=== PATIENT | male | born 1965 | race Caucasian/White ===

== ENCOUNTER 2021-02-02 19:21 | Inpatient (IN) | payer OTHER, SELFPAY ==
--- NOTE | ~2021-02-02 | US_ITS ---
EXAMINATION: ULTRASOUND EXTREMITY NONVASCULAR CLINICAL INFORMATION: Right dorsum foot cellulitis, question abscess COMPARISON: None TECHNIQUE: Sonographic evaluation of the dorsal right foot was performed in the area of clinical concern with a linear transducer. FINDINGS: There is subcutaneous edema consistent with the history of cellulitis. No focal fluid collection is seen. US/US extremity nonvascular IMPRESSION: No abscess identified.
--- NOTE | ~2021-02-02 | US_ITS ---
EXAMINATION: US VENOUS ULTRASOUND WITH DOPPLER LOWER EXTREMITY, BILATERAL CLINICAL INFORMATION: Pain COMPARISON: None TECHNIQUE: Ultrasound of the deep veins is performed from the hip to the calf bilaterally with compression sonography and color and pulse Doppler assessment. Spectral analysis with color-flow imaging is performed. FINDINGS: RIGHT: There is normal venous compression and respiratory variation and augmented flow. The visualized common femoral vein, superficial femoral vein, profunda femoral vein, popliteal vein, and the trifurcation region shows no evidence of deep venous thrombosis. There is no significant popliteal fossa cyst. LEFT: There is normal venous compression and respiratory variation and augmented flow. The visualized common femoral vein, superficial femoral vein, profunda femoral vein, popliteal vein, and the trifurcation region shows no evidence of deep venous thrombosis. There is no significant popliteal fossa cyst. If the patient's symptoms persist, followup ultrasound in 5 days 7 days might be of value to exclude proximal propagation from a non-visualized calf vein. US/US venous duplex LE BI IMPRESSION: No DVT demonstrated in the bilateral lower extremities.
--- NOTE | ~2021-02-02 | XR_ITS ---
EXAMINATION: XR FOOT, RIGHT CLINICAL INFORMATION: Foot infection COMPARISON: None TECHNIQUE: AP, lateral, and oblique views of the right foot. FINDINGS: The bones and soft tissues are normal. No fracture. Alignment is anatomic. Joint spaces are maintained. XR/XR foot RT min 3V IMPRESSION: No acute osseous abnormality of the right foot.
[2021-02-02 19:47] VITALS: BP 121/73; PULSE 96; RESP 16; TEMP 37.1; O2SAT 98; BMI 32.3
[2021-02-02 20:00] VITALS: BP 114/65; PULSE 77; RESP 16; TEMP 36.9; O2SAT 97
--- NOTE | 2021-02-02 21:35 | ED_ITS ---
HPI - Skin/Abscess/Foreign Bdy General Chief complaint: Skin/Abscess/Foreign Body Stated complaint: foot swelling Time Seen by Provider: 02/02/21 21:25 History of Present Illness HPI narrative: Patient is a 55-year-old male with a history of pre diabetes, hypertension, high cholesterol, history of smoking. History of coronary artery disease. Status post stents to the heart. Status post VT in the past. Presents today with having right foot pain that is been ongoing for the last 2 d ays. With subjective fever at home. Patient complaining of worsening pain now migrating to the legs. No cough no congestion or upper respiratory symptoms. No diaphoresis. Patient is from home. No history of the same in the past. Positive allergies to morphine patient gets a rash. No chest pain or shortness of breath no diaphoresis. Patient came because there is increased swelling to the right foot. There is also increasing pain. Related Data Previous Rx's Medication Instructions Recorded atorvastatin 40 mg tablet 40 mg PO DAILY #90 tab 06/06/20 chlorthalidone 25 mg tablet 25 mg PO DAILY 90 Days #90 tab 08/09/20 aspirin 81 mg tablet,delayed 81 mg PO DAILY #90 tab 08/10/20 release duloxetine 60 mg capsule,delayed 60 mg PO BID #180 cap 10/17/20 release metoprolol succinate 50 mg 50 mg PO DAILY #90 tab 01/09/21 tablet,extended release 24 hr ibuprofen 600 mg tablet 600 mg PO Q8H #90 tab 01/16/21 Allergies Allergy/AdvReac Type Severity Reaction Status Date / Time morphine [MORPHINE] Allergy Unknown RASH Verified 02/02/21 19:46 Review of Systems Review of Systems: Constitutional: No Weight loss, No Fever, No Chills, No Night Sweats, No Fatigue, No Malaise ENT/Mouth: No Hearing loss, No Ear Pain, No Nasal Congestion, No Sinus Pain, No Hoarseness, No sore throat, No Rhinorrhea, No Swallowing Difficulty Eyes: No Eye Pain, No Swelling, No Redness, No Foreign Body, No Discharge, No Vision Changes Cardiovascular: No Chest Pain, No SOB, No Dyspnea on Exertion, No Orthopnea, No Edema, No Palpitations Respiratory: No Cough, No Sputum, No Wheezing, No Smoke Exposure, No Dyspnea Gastrointestinal: No Nausea, No Vomiting, No Diarrhea, No Constipation, No abdominal Pain, No Hematochezia, No Melena Genitourinary: no irregular bleeding, No Dysuria, No Urinary Frequency, No He maturia, No Urinary Incontinence, No Urgency, No Flank Pain, No Urinary Flow Changes, No Hesitancy Musculoskeletal: No joint pain, No Myalgias, No Joint Swelling Skin: Positive swelling and redness to the right foot Neuro: No Weakness, No Numbness, No Paresthesias, No Loss of Consciousness, No Dizziness, No Headache Psych: No Anxiety/Panic, No Depression, No SI/HI/AH/VH, No Social Issues, Heme/Lymph: No Bruising, No Bleeding,No Lymphadenopathy Endocrine: No Polyuria, No Polydipsia, No Temperature Intolerance [facility] Past Medical History Medical History HTN (hypertension) Hyperlipidemia Stroke Social History Social History Alcohol intake: never Patient Tobacco Use Status: Current everyday Tobacco user Smoked in Last 30 Days: Yes Use of substances other than those prescribed or required for medical reasons: Yes Substance Use Type: Marijuana Substance Use Frequency: Daily Last Used Substance: Just Prior to Admission Advance Directives: No Physical Exam Vital Signs: Vital Signs: Last Vital Signs Temp 98.5 F 02/02/21 22:00 Pulse 77 02/02/21 22:00 Resp 16 02/02/21 22:00 BP 114/65 02/02/21 22:00 Pulse Ox 97 02/02/21 22:00 Body Mass Index 32.3 Appearance: Alert. Oriented X3. No acute distress. Eyes: Pupils equal, round and reactive to light. ENT: Pharynx normal. Neck: Normal inspection. Neck supple. No lymph nodes noted. No crepitus CVS: Normal heart rate and rhythm. Pulses normal. Normal S1 and S2 Respiratory: No respiratory distress. Breath sounds normal. No Wheezing. No rales Abdomen: Soft and nontender. No rigidity. No distention. good BS x4 Skin: Positive redness and swelling to the right foot. Extending almost the entire dorsum of the foot. There is lymphangitis that is in the distal leg as well Extremities: No lower extremity edema. Neurovascular intact to all extremities. No Lacerations. No Rash Neuro: Oriented X 3. No motor deficit. No sensory deficit. Moving all extermities. No slurred speech MDM - Skin/Abscess/Foreign Bdy MDM Narrative Medical decision making narrative: X-ray showed no acute fracture. Lactate was normal. No evidence for severe sepsis. Patient's white count was elevated. Diabetic. Has positive cellulitis with lymphangitis. Started on Zosyn. Will admit patient for further evaluation. Patient's case discussed with hospitalist team. Lab Data Result diagrams: 02/02/21 21:50 02/02/21 21:50 Labs: Lab Results 02/02/21 02/02/21 02/02/21 Range/Units 21:50 21:50 21:50 WBC 15.7 H (4.8-10.8) X10*3/uL RBC 4.67 (4.60-5.80) X10*6/uL Hgb 13.2 L (14.0-18.0) g/dl Hct 40.1 L (42-52) % MCV 85.9 (80-98) fL MCH 28.3 (27.0-33.0) pg MCHC 32.9 (31.0-36.0) g/dl RDW 14.4 (11.0-16.0) % Plt Count 322 (160-400) X10*3/uL MPV 9.7 (9.4-12.4) fL Immature Gran % (Auto) 0.4 (0.0-0.4) % Neut % (Auto) 71.8 (45-73) % Lymph % (Auto) 15.7 L (20-40) % [place] % (Auto) 10.8 (2-11) % Eos % (Auto) 1.0 (0-4) % Baso % (Auto) 0.3 (0-2) % Lymph # (Auto) 2.5 (1.2-4.9) X10*3/uL [place] # (Auto) 1.7 H (0.1-1.2) X10*3/uL Eos # (Auto) 0.2 (0.0-0.4) X10*3/uL Baso # (Auto) 0.0 (0.0-0.2) X10*3/uL Abs Immat Gran (auto) 0.06 H (0.00-0.03) X10*3/uL Absolute Neuts (auto) 11.3 H (2.0-8.3) X10*3/uL Absolute Nucleated RBC 0.000 (0.0-0.012) X10*3/uL Nucleated RBC % (auto) 0.0 (0.0-0.2) /100WBC Smear Tech's Comments VERIFIED Sodium 136 (135-145) mmol/L Potassium 4.4 (3.3-5.1) mmol/L Chloride 106 (96-108) mmol/L Carbon Dioxide 22 (22-29) mmol/L Anion Gap 12 (12-20) BUN 26 H (9-16) mg/dL Creatinine 0.85 (0.5-1.4) mg/dL Estim Creat Clear Calc 103.6 Estimated GFR > 60 Random Glucose 95 (60-115) mg/dL Lactic Acid 0.9 (0.5-2.0) mmol/L Calcium 9.0 (8.4-10.2) mg/dL Total Bilirubin 0.3 (0.0-1.0) mg/dL AST 18 (5-37) U/L ALT 25 (0-40) U/L Alkaline Phosphatase 97 (39-117) U/L Total Protein 6.9 (6.5-8.0) g/dL Albumin 4.1 (3.5-5.0) g/dL Discharge Plan Discharge Clinical Impression: Cellulitis Patient Disposition: Admitted As Inpatient
[2021-02-02] MEDS: Acetaminophen 325 MG TABLET 650 MG PO (21:57)
[2021-02-02 22:00] VITALS: BP 114/65; PULSE 77; RESP 16; TEMP 36.9; O2SAT 97
[2021-02-02] MEDS: Piperacillin Sodium/Tazobactam 3.375 GM in 0.9 % Sodium Chloride 50 ML IV (22:00)
[2021-02-02 22:01] LABS: Basophils Percent Auto 0.3 % (0-2); Eosinophils Absolute Auto 0.2 X10*3/uL (0.0-0.4); Hematocrit 40.1 % (42-52); Hemoglobin 13.2 g/dl (14.0-18.0); Imm Gran Abs Auto 0.06 X10*3/uL (0.00-0.03); Imm Gran Pct Auto 0.4 % (0.0-0.4); Lymphocytes Absolute Auto 2.5 X10*3/uL (1.2-4.9); Lymphocytes Percent Auto 15.7 % (20-40); MANUAL DIFF FLAG SCAN; Mean Corpuscular HGB Conc 32.9 g/dl (31.0-36.0); Mean Corpuscular Hemoglobin 28.3 pg (27.0-33.0); Mean Corpuscular Volume 85.9 fL (80-98); Mean Platelet Volume 9.7 fL (9.4-12.4); Monocytes Absolute Auto 1.7 X10*3/uL (0.1-1.2); Monocytes Percent Auto 10.8 % (2-11); Neutrophils Absolute Auto 11.3 X10*3/uL (2.0-8.3); Neutrophils Percent Auto 71.8 % (45-73); Platelet Count 322 X10*3/uL (160-400); Red Blood Count 4.67 X10*6/uL (4.60-5.80); Red Cell Distribution Width 14.4 % (11.0-16.0); SCAN SMEAR FLAG 1; White Blood Count 15.7 X10*3/uL (4.8-10.8)
[2021-02-02 22:22] LABS: Lactic Acid 0.9 mmol/L (0.5-2.0)
[2021-02-02 22:29] LABS: Alanine Aminotransferase 25 U/L (0-40); Albumin Level 4.1 g/dL (3.5-5.0); Alkaline Phosphatase 97 U/L (39-117); Anion Gap 12 (12-20); Aspartate Amino Transferase 18 U/L (5-37); Bilirubin Total 0.3 mg/dL (0.0-1.0); Blood Urea Nitrogen 26 mg/dL (9-16); Carbon Dioxide 22 mmol/L (22-29); Chloride 106 mmol/L (96-108); Creatinine Clr Calc Pharmacy 103.6; Estimated Glomerular Filt Rate > 60; Glucose Random 95 mg/dL (60-115); Potassium 4.4 mmol/L (3.3-5.1); Sodium 136 mmol/L (135-145); Total Protein 6.9 g/dL (6.5-8.0)
[2021-02-02 22:31] LABS: SLIDE REVIEW VERIFIED
[2021-02-03] VITALS (9 sets, daily range): BP systolic 88–128; BP diastolic 48–75; PULSE 68–83; RESP 14–18; TEMP 35.7–37.3; O2SAT 97–99
--- NOTE | 2021-02-03 00:57 | PM.IMHP ---
History of Present Illness Date of Service: 02/03/21 Chief Complaint: Right foot pain 55-year-old male with a past medical history of hypertension, hyperlipidemia, prediabetes, coronary artery disease status post stents presented to the hospital with a chief complaint of right foot pain for the past 2 days. Noted to have increased pain redness and erythema on right foot. Denies any fever chills cough. Denies any chest pain palpitations. Denies any numbness tingling. Denies any urinary symptoms. Review of all other systems is negative except mentioned above Patient denies any trauma. ER course: Per ER team patient noted to have right foot dorsum cellulitis not concerned for any abscess. Given Zosyn. Admitted to the hospital for further management. [facility] Medical History HTN (hypertension) Hyperlipidemia Stroke Social History Household Members: Spouse, Family and Children Housing: Apartment Do you presently have visiting nurse or other home services: No Alcohol intake: never Patient Tobacco Use Status: Current everyday Tobacco user Tobacco use type: Cigarette Cigarette Packs Per Day: 1 Cigarettes Per Day: 20.0 Smoked in Last 30 Days: Yes e-Cigarette/Vaping Use: Currently Using Patient Interested in Nicotine Replacement: Yes Patient Given Instructions on How to Stop Smoking: No Second Hand Smoke Exposure: Yes Use of substances other than those prescribed or required for medical reasons: Yes Substance Use Type: Marijuana Substance Use Frequency: Daily Last Used Substance: Just Prior to Admission Currently Displaying Signs/Symptoms of Drug Intoxication Withdrawal: No Any prior treatment program specific to substance use: No Have you been hit, kicked, punched, or otherwise hurt by someone within the past year? If so, by whom?: No Do you feel safe in your current relationship?: Yes Is there a partner from a previous relationship who is making you feel unsafe now?: No Are you made to feel afraid or neglected: No Hinduism Healthcare Practices: Church Advance Directives: No Do you have thoughts of harming others: None Do you have a plan to hurt others: No Plan Recently lost weight without trying: No Eating poorly because of decreased appetite: No Nutrition Risks: No Nutritional Risk Poor oral hygiene: No service: Yes Current occupational status: disabled Meds Allergies Allergy/AdvReac Type Severity Reaction Status Date / Time morphine [MORPHINE] Allergy Unknown RASH Verified 02/02/21 19:46 Active Medications: Current Medications Generic Name Dose Route Start Last Admin Trade Name Freq PRN Reason Stop Dose Admin Acetaminophen 650 mg 02/03/21 00:53 Acetaminophen 325 Mg Tablet PO Q6H PRN Pain, Mild (Pain Scale 1-3) Docusate Sodium 100 mg 02/03/21 09:00 Docusate Sodium 100 Mg Capsule PO BID [facility] Enoxaparin Sodium 40 mg 02/03/21 01:00 Enoxaparin Sodium 40 Mg/0.4 Ml Syringe SUBCUT Q24H [facility] Sodium Chloride 1,000 mls @ 100 mls/hr 02/03/21 01:00 Ns IVCONT .Q10H [facility] Piperacillin Sod/Tazobactam 50 mls @ 100 mls/hr 02/03/21 01:00 Sod 3.375 gm/ Sodium Chloride IV Q6H [facility] Insulin Human Lispro 0 unit 02/03/21 07:30 Insulin Lispro 100 Unit/Ml 3 Ml Vial SUBCUT QIDACHS [facility] Protocol Magnesium Hydroxide 30 ml 02/03/21 00:53 Milk Of Magnesia 30 Ml Oral.Susp PO DAILY PRN Constipation Sodium Chloride 3 ml 02/03/21 08:00 0.9 % Sodium Chloride Flush 3 Ml Syringe IVFLUSH QSHIFT [facility] Home Medications Medication Instructions Recorded Confirmed Last Taken Type albuterol sulfate [ProAir HFA] 2 puff INHALATION Q4-5H PRN 02/03/21 02/03/21 2 Days Ago History ~02/01/21 lisinopril 1 tab PO DAILY 02/03/21 02/03/21 Unknown History tiotropium bromide [Spiriva with 1 cap INHALATION DAILY 02/03/21 02/03/21 Unknown History HandiHaler] Physical Exam Vital Signs and Narrative: Vital Signs: Last Vital Signs Temp 98.5 F 02/02/21 22:00 Pulse 77 02/02/21 22:00 Resp 16 02/02/21 22:00 BP 114/65 02/02/21 22:00 Pulse Ox 97 02/02/21 22:00 Body Mass Index 32.3 Gen: Appears be in no acute distress HEENT: NCAT, Moist mucosa. Pulmonary: Vesicular breath sounds, fair air entry CVS: Normal S1-S2 Abdomen: BS+, Soft, Nontender Extremities: Warm well perfused; right foot dorsum noted to have hyperemia and tenderness. Neuro: Alert and awake. Results Labs CBC and Chem 7: 02/03/21 06:53 02/03/21 06:53 Labs: Laboratory Results - last 24 hr 02/02/21 02/02/21 02/02/21 21:50 21:50 21:50 MCV 85.9 MCH 28.3 MCHC 32.9 RDW 14.4 Plt Count 322 MPV 9.7 Immature Gran % (Auto) 0.4 Neut % (Auto) 71.8 Lymph % (Auto) 15.7 L [place] % (Auto) 10.8 Eos % (Auto) 1.0 Baso % (Auto) 0.3 Lymph # (Auto) 2.5 [place] # (Auto) 1.7 H Eos # (Auto) 0.2 Baso # (Auto) 0.0 Abs Immat Gran (auto) 0.06 H Absolute Neuts (auto) 11.3 H Absolute Nucleated RBC 0.000 Nucleated RBC % (auto) 0.0 Smear Tech's Comments VERIFIED Anion Gap 12 Estim Creat Clear Calc 103.6 Estimated GFR > 60 Random Glucose 95 Lactic Acid 0.9 Calcium 9.0 Total Bilirubin 0.3 AST 18 ALT 25 Alkaline Phosphatase 97 Total Protein 6.9 Albumin 4.1 Imaging Radiologist's Impressions: Impressions Foot X-Ray 02/02/21 21:31 IMPRESSION: No acute osseous abnormality of the right foot. Assessment and Plan (1) Cellulitis: Status: Acute 55-year-old male with a past medical history of hypertension, hyperlipidemia, CAD status post stents, prediabetes presented to the hospital with a chief complaint of right foot dorsum pain and redness noted to have cellulitis. Admitted for further management. Right foot dorsum cellulitis: X-ray showed no acute findings. Continue Zosyn. Will obtain venous duplex. And ultrasound to rule out any abscess. PreDiabetes: Will obtain hemoglobin A1c and Insulin sliding scale Hypertension/hyperlipidemia/CAD: Continue home medications DVT prophylaxis: Lovenox Code status: Full code
--- NOTE | 2021-02-03 01:33 | PC.NURSE ---
THIS RN TO BEDSIDE TO FIND PT NOT IN THE ROOM, ALL BATHROOMS HAVE BEEN CHECKED, THIS RN WALKED THROUGHOUT UNIT AND HAS NOT BEEN ABLE TO LOCATE PATIENT AT THIS TIME.
[2021-02-03] MEDS: 0.9 % Sodium Chloride 1,000 ML 100 ML IVCONT ×3 (01:58→20:21)
[2021-02-03] MEDS: Piperacillin Sodium/Tazobactam 3.375 GM in 0.9 % Sodium Chloride 50 ML IV ×4 (01:59→20:19)
[2021-02-03 02:23] LABS: COVID-19 Test Negative (Negative)
[2021-02-03 07:06] LABS: MANUAL DIFF FLAG NO
[2021-02-03] MEDS: Acetaminophen 325 MG TABLET 650 MG PO (07:08)
[2021-02-03 07:10] LABS: Basophils Percent Auto 0.3 % (0-2); Eosinophils Absolute Auto 0.1 X10*3/uL (0.0-0.4); Eosinophils Percent Auto 1.1 % (0-4); Hematocrit 37.8 % (42-52); Hemoglobin 12.3 g/dl (14.0-18.0); Imm Gran Abs Auto 0.04 X10*3/uL (0.00-0.03); Imm Gran Pct Auto 0.3 % (0.0-0.4); Lymphocytes Absolute Auto 1.9 X10*3/uL (1.2-4.9); Lymphocytes Percent Auto 15.1 % (20-40); Mean Corpuscular HGB Conc 32.5 g/dl (31.0-36.0); Mean Corpuscular Hemoglobin 28.1 pg (27.0-33.0); Mean Corpuscular Volume 86.3 fL (80-98); Mean Platelet Volume 9.4 fL (9.4-12.4); Monocytes Absolute Auto 1.2 X10*3/uL (0.1-1.2); Monocytes Percent Auto 9.8 % (2-11); Neutrophils Absolute Auto 9.2 X10*3/uL (2.0-8.3); Neutrophils Percent Auto 73.4 % (45-73); Platelet Count 291 X10*3/uL (160-400); Red Blood Count 4.38 X10*6/uL (4.60-5.80); Red Cell Distribution Width 14.4 % (11.0-16.0); White Blood Count 12.5 X10*3/uL (4.8-10.8)
[2021-02-03 07:34] LABS: Estimated Average Glucose 126 mg/dL
[2021-02-03 07:41] LABS: Magnesium 1.8 mg/dL (1.6-2.6)
[2021-02-03 07:46] LABS: Anion Gap 13 (12-20); Blood Urea Nitrogen 19 mg/dL (9-16); Carbon Dioxide 20 mmol/L (22-29); Chloride 107 mmol/L (96-108); Estimated Glomerular Filt Rate > 60; Glucose Random 109 mg/dL (60-115); Sodium 136 mmol/L (135-145)
[2021-02-03 07:55] LABS: Calcium 8.4 mg/dL (8.4-10.2)
[2021-02-03] MEDS: Ibuprofen 600 MG TABLET PO ×2 (08:21→15:31)
[2021-02-03] MEDS: Aspirin Enteric Coated 81 MG TABLET.DR PO (08:21)
[2021-02-03] MEDS: Enoxaparin Sodium 40 MG/0.4 ML SYRINGE SUBCUT (08:21)
[2021-02-03] MEDS: DULoxetine HCl 60 MG CAPSULE.DR PO ×2 (08:21→20:18)
--- NOTE | 2021-02-03 09:58 | PM.EVENT ---
Event Note Date of Service: 02/03/21 Event Note: Pt seen and examined, has cellulitis of right foot as see picture, clinically improving on zosyn, Continue Zosy, add PO Doxy and if better by tomorrow, discharge with Oral Doxy
--- NOTE | 2021-02-03 11:39 | PC.NURSE ---
attempted to call report X1 will call back
--- NOTE | 2021-02-03 13:52 | MHC.CM.PN ---
PATIENT LIVES WITH HIS . HE IS INDEPENDENT WITH ALL ADLS. PATIENT DOES RELY ON A SINGLE PRONG CANE IN THE RECENT MONTHS SECONDARY TO NUMBNESS IN FEET. PATIENT TYPICALLY HAS HIS MEDICATION DELIVERED BY [facility], BUT ASKS THAT ANY PO ABX BE SENT TO THE [facility] IN [place], [place] AT THE CURRENT PLAN IS IV ABX, WITH A TRANSITION TO PO ON Thursday02/04/21. WILL PROVIDE TRANSPORT HOME.
[2021-02-03] MEDS: Docusate Sodium 100 MG CAPSULE PO (20:18)
[2021-02-03] MEDS: Atorvastatin Calcium 40 MG TABLET PO (20:18)
[2021-02-04 03:31] VITALS: BP 127/78; PULSE 89; RESP 18; TEMP 36.4; O2SAT 97
[2021-02-04] MEDS: Acetaminophen 325 MG TABLET 650 MG PO (04:15)
[2021-02-04] MEDS: Piperacillin Sodium/Tazobactam 3.375 GM in 0.9 % Sodium Chloride 50 ML IV ×2 (04:16→05:00)
[2021-02-04 07:43] VITALS: BP 127/67; PULSE 76; RESP 18; TEMP 36.4; O2SAT 97
[2021-02-04 08:38] VITALS: BP 127/67; PULSE 76
[2021-02-04] MEDS: lisinopriL 40 MG TABLET PO (08:38)
[2021-02-04] MEDS: DULoxetine HCl 60 MG CAPSULE.DR PO (08:38)
[2021-02-04] MEDS: Docusate Sodium 100 MG CAPSULE PO (08:38)
[2021-02-04] MEDS: Enoxaparin Sodium 40 MG/0.4 ML SYRINGE SUBCUT (08:38)
[2021-02-04] MEDS: Metoprolol Succinate ER 50 MG TAB.ER.24H PO (08:38)
[2021-02-04] MEDS: Aspirin Enteric Coated 81 MG TABLET.DR PO (08:38)
[2021-02-04] MEDS: Ibuprofen 600 MG TABLET PO (08:41)
--- NOTE | 2021-02-04 09:41 | PM.DS ---
DS: Providers Provider Date of Service: 02/04/21 Date of admission: 02/03/21 00:53 Primary care physician: Garrick aDley MD DS: Diagnosis Discharge Diagnosis (1) Cellulitis: Status: Acute DS: Medications Discharge Medications Home Medications: Home Medications Medication Instructions Recorded Confirmed albuterol sulfate [ProAir HFA] 2 puff INHALATION Q4-5H PRN 02/03/21 02/03/21 lisinopril 1 tab PO DAILY 02/03/21 02/03/21 tiotropium bromide [Spiriva with 1 cap INHALATION DAILY 02/03/21 02/03/21 HandiHaler] Previous Rx's Medication Instructions Recorded atorvastatin 40 mg tablet 40 mg PO DAILY #90 tab 06/06/20 aspirin 81 mg tablet,delayed 81 mg PO DAILY #90 tab 08/10/20 release duloxetine 60 mg capsule,delayed 60 mg PO BID #180 cap 10/17/20 release metoprolol succinate 50 mg 50 mg PO DAILY #90 tab 01/09/21 tablet,extended release 24 hr ibuprofen 600 mg tablet 600 mg PO Q8H #90 tab 01/16/21 DS: Summary Hospital Course Hospital Course: Patient was admitted and being treated for right foot cellulitis of the foot and was getting IV antibiotics. While there has been some improvement, I do not believe at this time that the infection is contained enough to be transitioned to oral antibiotics. He is, however, adamant that he has to go. Risks explained to him carefully, including, nut not limited to, infection can spread, lead to sepsis, loss of limb and even the possible of . He is of sound mind, alert, oriented to self, place and time, and aware of his situation. He was able to repeat the risks back in his own words and is willing to sing AMA form. He is been prescribed Doxycyline and Augmentin and instructed to return to ED if he notices any worsening or if not improving. He assured me if not getting better, I will come back . Nurser Lesly Messer was present during the conversation Time Spent with Patient Time attestation: Total time spent providing and/or coordinating discharge services: Discharge coordination time: Greater than 30 minutes Quality: Stroke Does the patient have a stroke diagnosis?: No Physical Exam Vital Signs: Vital Signs: Last Vital Signs Temp 97.6 F 02/04/21 07:43 Pulse 76 02/04/21 08:38 Resp 18 02/04/21 07:43 BP 127/67 02/04/21 08:38 Pulse Ox 97 02/04/21 07:43 Body Mass Index 32.3 General: AO X 3, no acute distress Resp: CTA bilateral CVS: S1,S2,RRR GI: +BS, NT, no distention Skin: No rash, some redness on top of right foot, slightly warm and swelling in the foot Neuro: motor grossly intact Psych: appropriate affect DS: Data Data Completed and Pending Labs on day of discharge: Preliminary micro results at discharge 02/02/21 21:50 Blood Culture - Preliminary Blood - Venous No growth after 24 hours. 02/02/21 21:50 Blood Culture - Preliminary Blood - Venous No growth after 24 hours. Discharge Plan Discharge Anticipated Discharge Date/Time: 02/04/21 09:28 Patient Disposition: Left Against Medical Advice Discharge Diagnosis: Cellulitis of the foot Referrals: Garrick Daley MD [Primary Care Provider] - 1 Week Discharge Medications: New doxycycline hyclate 100 mg tablet 100 mg PO DAILY Qty: 13 RF: 0 amoxicillin-pot clavulanate [Augmentin] 875-125 mg tablet 1 tab PO BID Qty: 13 RF: 0 Continued atorvastatin 40 mg tablet 40 mg PO DAILY Qty: 90 RF: 8 aspirin [Adult Low Dose Aspirin] 81 mg tablet,delayed release (DR/EC) 81 mg PO DAILY Qty: 90 RF: 8 duloxetine 60 mg capsule,delayed release(DR/EC) 60 mg PO BID Qty: 180 RF: 8 metoprolol succinate 50 mg tablet extended release 24 hr 50 mg PO DAILY Qty: 90 RF: 8 ibuprofen 600 mg tablet 600 mg PO Q8H Qty: 90 RF: 8 albuterol sulfate [ProAir HFA] 90 mcg/actuation HFA aerosol inhaler 2 puff inhalation Q4-5H PRN (Reason: Shortness Of Breath Or Wheezing) RF: 0 lisinopril 40 mg tablet 1 tab PO DAILY RF: 0 Spiriva with HandiHaler 18 mcg capsule, w/inhalation device 1 cap inhalation DAILY RF: 0 Discharge Orders: Discharge Order (Routine); Ordered 02/04/21 Ordered By: Munir [facility] Care Plan Goals: resolution of cellulitis Health Concerns: cellulitis of the foot Plan of Treatment: Take Doxycyline and Augmentin as recommended and follow up with your Doctor as soon as possible, if you notice any increase in the swelling and redness in the foot or having fevers and chills, excessive pain go to emergency imidiately or call 911. You understand you are leaving against medical advise and assume all responsibilities, including but not limitted to the infection getting worse, sepsis, and even Assessment: See above
[2021-02-04] MEDS: Amoxicillin/Potassium Clav 875 MG TABLET PO (10:07)
--- NOTE | 2021-02-04 10:45 | PC.NURSE ---
Pt wanting to leave hospital. Dr. Harrison at bedside to discuss risks of leaving against medical advice. Pt alert and oriented. Pt verbalized understanding. Pt given script for PO antibiotics. IV removed, no issues. Pt ambulated off unit independently.
== END 2021-02-04 10:15 | disposition left against medical advice (07) | DRG 383 ==
LOC: HO.ED 02-03 01:12 → HO.EDOVER 02-03 01:27 → HO.IMC 02-03 06:52 → HO.EDOVER 02-03 06:57 → HO.S3 02-03 11:27
PROVIDERS: Admitting Provider Hospitalist; Emergency Provider Emergency Medicine Emergency Medical Services; PCP Internal Medicine; Visit Provider Internal Medicine
DX: L03.115 Cellulitis of right lower limb (principal); E78.5 Hyperlipidemia, unspecified; F17.210 Nicotine dependence, cigarettes, uncomplicated; I10 Essential (primary) hypertension; I25.10 Atherosclerotic heart disease of native coronary artery without angina pectoris; Z20.822 Contact with and (suspected) exposure to COVID-19; Z71.6 Tobacco abuse counseling; Z79.1 Long term (current) use of non-steroidal anti-inflammatories (NSAID); Z79.82 Long term (current) use of aspirin; Z79.899 Other long term (current) drug therapy
CPT/HCPCS: 36415; 73630; 76882; 80048; 80053; 83036; 83605; 83735; 85025; 87040; 87635; 93970; 99218; 99285; J1650; J2543